=== PATIENT | female | born 1950 | race Caucasian/White ===

== ENCOUNTER → 2020-02-10 14:23 | Outpatient (CLI) | payer OTHER, SELFPAY ==
--- NOTE | 2020-02-10 | DI.RAD.S_ITS ---
PROCEDURE: XR SHOULDER LT MIN 2V INDICATIONS: Left shoulder pain TECHNIQUE: 3 views of the shoulder were acquired. COMPARISON: None. FINDINGS: Bones: No fractures or dislocations. No suspicious bony lesions. Visualized ribs appear intact. Mild a.c. joint osteoarthritis. Soft tissues: No suspicious soft tissue calcifications. IMPRESSION: Mild a.c. joint osteoarthritis. Dictated by: Eliseo Munoz M.D. on 02/10/2020 at 15:41 Approved by: Eliseo Munoz M.D. on 02/10/2020 at 15:42
== END ==
PROVIDERS: Referring Provider Physician Assistant; Visit Provider Physician Assistant
DX: M25.512 Pain in left shoulder (principal); M19.012 Primary osteoarthritis, left shoulder
CPT/HCPCS: 73030

== ENCOUNTER → 2020-03-11 10:59 | Outpatient (CLI) | payer OTHER, SELFPAY ==
--- NOTE | 2020-03-11 | DI.MRI.S_ITS ---
PROCEDURE: MR SHOULDER LT WO CON INDICATIONS: Strain of unspecified muscle, fascia and tendon at shoulder TECHNIQUE: Noncontrast oblique coronal T2 fast spin echo with fat saturation, oblique sagittal T1 spin echo and T2 fast spin echo with fat saturation, axial T1 spin echo and T2 fast spin echo with fat saturation through the shoulder. COMPARISON: None. FINDINGS: Image quality: Excellent. Rotator cuff: Tendinosis and low to moderate grade articular and bursal surface partial-thickness tear involving distal supraspinatus and infraspinatus is seen at their insertion on humeral head extending to musculotendinous junction. Distal subscapularis tendon is intact. No full-thickness rotator cuff tendon rupture. Sagittal images demonstrate very mild supraspinatus muscle atrophy. Bones and bursae: No bone marrow contusions or fractures. Moderate acromioclavicular joint osteophytic changes are seen with downward osteophyte formation compressing on musculotendinous junction of supraspinatus. No pathologic subacromial-subdeltoid or subcoracoid bursal fluid is present. Capsule and soft tissues: In the absence of intra-articular contrast, there is subtle signal abnormality and contour irregularity involving superior anterior labrum at 12 to 1:00 position. The glenohumeral ligaments appear intact. The long head of the biceps tendon demonstrates normal location and morphology. The rotator interval appears normal, without fibrosis. The coracohumeral ligament is normal in thickness. IMPRESSION: 1. Tendinosis and low to moderate grade articular and bursal surface partial-thickness tear involving distal supraspinatus extending to musculotendinous junction. No full-thickness rotator cuff tendon rupture. 2. Moderate acromioclavicular joint osteoarthritis. 3. Suggestion of superior anterior labral tear at 12 to 1:00 position. Dictated by: Joseph Jenkins M.D. on 03/11/2020 at 12:38 Approved by: Joseph Jenkins M.D. on 03/11/2020 at 13:01
== END ==
PROVIDERS: Referring Provider Orthopaedic Surgery; Visit Provider Orthopaedic Surgery
DX: S46.012A Strain of muscle(s) and tendon(s) of the rotator cuff of left shoulder, initial encounter (principal); M19.012 Primary osteoarthritis, left shoulder
CPT/HCPCS: 73221

== ENCOUNTER → 2020-06-23 08:20 | Outpatient (CLI) | payer OTHER, SELFPAY ==
--- NOTE | 2020-06-23 | DI.MG.S_ITS ---
BILATERAL DIGITAL SCREENING MAMMOGRAM 3D/2D WITH CAD: 06/23/2020 CLINICAL: Routine screening. Comparison is made to exam dated: 03/19/2017 mammogram - [facility]. There are scattered fibroglandular elements in both breasts. Current study was also evaluated with a Computer Aided Detection (CAD) system. No significant masses, calcifications, or other findings are seen in either breast. There has been no significant interval change. IMPRESSION: NEGATIVE There is no mammographic evidence of malignancy. A 1 year screening mammogram is recommended. This exam was interpreted at Station ID: [id number]. NOTE: For mammograms, a report in lay terms will be sent to the patient. Approximately 15% of breast malignancies will not be visualized mammographically. In the management of a palpable breast mass, a negative mammogram must not discourage biopsy of a clinically suspicious lesion. Electronically Signed By: Travis perez/[email or web address]:06/23/2020 09:06:59 letter sent: Normal Exam ACR BI-RADS Category 1: Negative [id number]
== END ==
PROVIDERS: PCP Internal Medicine; Referring Provider Internal Medicine; Visit Provider Internal Medicine
DX: Z12.31 Encounter for screening mammogram for malignant neoplasm of breast (principal)
CPT/HCPCS: 77063; 77067

== ENCOUNTER 2021-05-08 11:42 | Emergency (ER) | payer MEDICARE, SELFPAY ==
[2021-05-08 11:45] VITALS: BP 161/88; PULSE 60; RESP 16; TEMP 36.1; O2SAT 96; BMI 23.3
--- NOTE | 2021-05-08 12:01 | DI.RAD.S_ITS ---
PROCEDURE: XR KNEE LT 3V INDICATIONS: direct blow/swelling TECHNIQUE: 3 views of the knee were acquired. COMPARISON: None. FINDINGS: Bones: There is a prominently displaced patellar fracture seen on the lateral view. No additional fractures can be seen. The hardware otherwise appears intact. Soft tissues: No joint effusion. No suspicious soft tissue calcifications. IMPRESSION: Prominently displaced patellar fracture. Dictated by: Thom Watkins M.D. on 05/08/2021 at 11:23 Approved by: Thom Watkins M.D. on 05/08/2021 at 11:24
[2021-05-08 12:58] VITALS: BP 172/81; PULSE 62; RESP 19; O2SAT 99
[2021-05-08 13:04] VITALS: BP 169/85; PULSE 62; O2SAT 99
--- NOTE | 2021-05-08 13:08 | ED_ITS ---
HPI - Extremity Injury (Lower) <MEMO Davila - Last Filed: 05/08/21 17:57> General Chief Complaint: Extremity Injury, Lower Stated Complaint: Knee Dislocation Time Seen by Provider: 05/08/21 12:39 Source: patient Mode of arrival: EMS Limitations: physical limitation History of Present Illness HPI Narrative: 70-year-old female presents to the ED for left knee pain after slipping on a wet floor at [employer] and falling a couple hours prior. She complains that her pain is 7 to 8/10, and she is concerned about bearing weight. She denies hitting her head or any other injury. She reports that she is normally active and in good physical shape. She has had a knee replacement of this knee is and is concerned about it. Related Data Previous Rx's Medication Instructions Recorded methocarbamol 500 mg tablet 500 mg PO PRN PRN #20 tab 05/08/21 oxycodone-acetaminophen 5 mg-325 1 tab PO TID PRN #20 tab 05/08/21 mg tablet (Percocet) Allergies Allergy/AdvReac Type Severity Reaction Status Date / Time No Known Drug Allergies Allergy Verified 05/08/21 12:18 Review of Systems <MEMO Davila - Last Filed: 05/08/21 17:57> Review of Systems Narrative: General: denies fever, chills Head/Neck: denies headache, neck pain Eyes: denies visual changes, eye pain Cardio: denies chest pain, palpitations Respiratory: denies shortness of breath, cough GI: denies abdominal pain, nausea, vomiting, or diarrhea : denies dysuria, hematuria MSK: Left knee swelling, pain, and decreased ROM. Denies muscle weakness, numbness or tingling. Skin: denies rash, itching Neuro: denies numbness, tingling Patient History <MEMO Davila - Last Filed: 05/08/21 17:57> Social History Smoking Status: Former smoker Smoking Status: Former smoker alcohol intake frequency: holidays/special occasions only Substance Use Type: does not use Exam <MEMO Davila - Last Filed: 05/08/21 17:57> Narrative Exam Narrative: Independently reviewed vitals signs and nursing notes. General: Awake, alert, nontoxic, no cardiorespiratory distress Head/Neck: Atraumatic, neck full range of motion Eyes: EOMI, conjunctiva normal Nose: nares patent, no rhinorrhea Mouth/Throat: moist mucus membranes, posterior pharynx normal, no oral lesions Cardio: Regular rate and rhythm, no peripheral edema Respiratory: respirations unlabored without wheezing, stridor, or rales. No retractions. GI: Abdomen soft, nontender MSK: Moves all extremities, left knee with ecchymosis and edema, in position of comfort with pillow under knee, neurovascularly intact. Patient able to flex and extend left knee with pain. Skin: Normal capillary refill, no rash Neuro: Normal speech and cognition, normal gait Initial Vital Signs Initial Vital Signs: Vital Signs Temperature 96.9 F L 05/08/21 11:45 Pulse Rate 60 05/08/21 11:45 Respiratory Rate 16 05/08/21 11:45 Blood Pressure 161/88 H 05/08/21 11:45 Pulse Oximetry 96 05/08/21 11:45 <Jaja Garcia DO - Last Filed: 05/12/21 18:04> Initial Vital Signs Initial Vital Signs: Vital Signs Temperature 96.9 F L 05/08/21 11:45 Pulse Rate 60 05/08/21 11:45 Respiratory Rate 16 05/08/21 11:45 Blood Pressure 161/88 H 05/08/21 11:45 Pulse Oximetry 96 05/08/21 11:45 Procedures <MEMO Davila - Last Filed: 05/08/21 17:57> Orthopedic Splinting/Casting Injury #1: Side: left Lower Extremity Injury Location: knee Lower Extremity Immobilizer: knee immobilizer and Stuart wrap Other Orthopedic Equipment: walker Post splinting neuro exam: intact Post splinting vascular exam: intact Placed by: Nursing Course <MEMO Davila - Last Filed: 05/08/21 17:57> Orders Ordered: Discontinued Medications Oxycodone/Acetaminophen (Oxycodone/Acetaminophen 5/325 Tablet) 1 tab PO NOW ONE Stop: 05/08/21 12:52 Last Admin: 05/08/21 13:11 Dose: 1 tab Documented by: DUSTIN Vital Signs Vital signs: Vital Signs - 8 hr 05/08/21 11:45 05/08/21 12:58 05/08/21 13:04 Temperature 96.9 F L Pulse Rate 60 62 62 Respiratory Rate 16 19 Blood Pressure 161/88 H 172/81 H 169/85 H Pulse Oximetry 96 99 99 05/08/21 13:48 Temperature Pulse Rate 67 Respiratory Rate 20 Blood Pressure 161/81 H Pulse Oximetry 99 <Jaja Garcia DO - Last Filed: 05/12/21 18:04> Orders Ordered: Discontinued Medications Oxycodone/Acetaminophen (Oxycodone/Acetaminophen 5/325 Tablet) 1 tab PO NOW ONE Stop: 05/08/21 12:52 Last Admin: 05/08/21 13:11 Dose: 1 tab Documented by: DUSTIN Vital Signs Vital signs: Vital Signs - 8 hr 05/08/21 11:45 05/08/21 12:58 05/08/21 13:04 Temperature 96.9 F L Pulse Rate 60 62 62 Respiratory Rate 16 19 Blood Pressure 161/88 H 172/81 H 169/85 H Pulse Oximetry 96 99 99 05/08/21 13:48 Temperature Pulse Rate 67 Respiratory Rate 20 Blood Pressure 161/81 H Pulse Oximetry 99 MDM - Extremity Injury (Lower) <Dana Andersen [facility] - Last Filed: 05/08/21 17:57> Imaging Data Extremity x-ray #1: Radiologist's Impression: PROCEDURE:? XR KNEE LT 3V ? INDICATIONS:? direct blow/swelling ? TECHNIQUE:? 3 views of the knee were acquired.? ? COMPARISON:? None. ? FINDINGS:? ? Bones:? There is a prominently displaced patellar fracture seen on the lateral view. ? No additional fractures can be seen.? The hardware otherwise appears intact. ? Soft tissues:? No joint effusion.? No suspicious soft tissue calcifications.? ? ? IMPRESSION:? Prominently displaced patellar fracture. ? ? Dictated by: Thom Watkins M.D. on 05/08/2021 at 11:23 ? ? Approved by: Thom Watknis M.D. on 05/08/2021 at 11:24 ? MDM Narrative Medical decision making narrative: 70-year-old female presents to the ED for left knee pain following a fall. X-ray shows prominently displaced patellar fracture with intact hardware. Initial ddx to include but not limited to meniscal tear and ligamental tear. Vitals were stable during visit. Patient was placed in a knee immobilizer, with Stuart wrap around her knee, and provided a walker. She was able to ambulate without bearing weight prior to discharge. Prescribed methocarbamol and Percocet for pain and she understands she will follow-up with orthopedics in a week. Patient is appropriate and amenable to discharge home. Vital signs are stable on repeat examination is unremarkable. Patient has been informed of results. Patient has been given strict return to ER precautions for any new or worsening symptoms. Patient understands to follow up closely with outpatient providers as instructed. Patient understands plan and agrees to discharge home. All questions and concerns answered at this time. Discharge Plan Departure Patient Disposition: Home Clinical Impression: Patellar fracture Qualifiers: Encounter type: initial encounter Fracture type: closed Fracture morphology: unspecified fracture morphology Fracture alignment: displaced Laterality: left Qualified Code(s): S82.002A - Unspecified fracture of left patella, initial encounter for closed fracture Knee Injury Qualifiers: Encounter type: initial encounter Laterality: left Qualified Code(s): S89.92XA - Unspecified injury of left lower leg, initial encounter Instructions: DI for Patella Fracture Activity Restrictions/Additional Instructions: *You have been diagnosed with a left knee displaced patellar fracture. Please follow-up in [address] Huerta at [facility]. His phone number is below. For pain take 600 mg of ibuprofen every 6 hours, use the Percocet and methocarbamol for pain as needed. Do not take the Percocet and methocarbamol at the same time, alternate them. Ice as much as possible, wear the knee immobilizer at all times even while sleeping, and use the walker to help get around. *What to do: *Please continue to take your regular medications as directed. [x ] New medication prescriptions sent to your pharmacy: [facility] [ ] New medication written as a paper prescription [ ] No new medications given *Please follow up with your primary care provider in 2-3 days, call for an appointment. Let them know you were seen in the Emergency Department and that we ask that you be seen in follow up. We will electronically transmit a record of today's note if your PCP is in our system *If you do not have a primary care provider please contact the [facility] Resource line at [phone]. They will ask some questions about your medical history and help get you set up with a doctor in the community. *Return to Emergency Department if you should have any new, worsening or concerning symptoms, such as [fever greater than 101F, chills, worsening pain, persistent vomiting or other bothersome symptoms] Prescriptions: New methocarbamol 500 mg tablet 500 mg PO PRN PRN (Reason: muscle spasm) Qty: 20 RF: 0 oxycodone-acetaminophen [Percocet] 5-325 mg tablet 1 tab PO TID PRN (Reason: pain) Qty: 20 RF: 0 Referrals: Rubén Liu MD [Primary Care Provider] - Manjinder Huerta MD [Physician] - 5-7 days (displaced left patellar fracture) <Jaja Garcia DO - Last Filed: 05/12/21 18:04> Cosign ED Attending Tulioature Attestation: I was immediately available in the department for consultation. Documentation has been reviewed. I agree with assessment and plan.
[2021-05-08] MEDS: OXYCODONE/ACETAMINOPHEN 5/325 TABLET 1 TAB PO (13:11)
[2021-05-08 13:48] VITALS: BP 161/81; PULSE 67; RESP 20; O2SAT 99
== END 2021-05-08 13:50 | disposition home or self-care (01) ==
PROVIDERS: Emergency Provider Nurse Practitioner Critical Care Medicine; PCP Internal Medicine
DX: S82.002A Unspecified fracture of left patella, initial encounter for closed fracture (principal); S89.92XA Unspecified injury of left lower leg, initial encounter; W19.XXXA Unspecified fall, initial encounter
CPT/HCPCS: 73562; 99283